=== PATIENT | female | born 1990 | race Caucasian/White ===

== ENCOUNTER 2019-07-08 10:26 | Emergency (ER) | payer SELFPAY ==
[2019-07-08 11:12] LABS: #Lymphocytes 1.4 thou/uL (1.20-3.40); #Monocytes 0.6 thou/uL (0.11-0.59); %Basophils 0.3 % (0.0-1.0); %Eosinophils 0.4 % (0.0-10.0); %Lymphocytes 17.5 % (21.0-51.0); %Monocytes 7.7 % (0.0-10.0); %Neutrophils 74.2 % (42.0-75.0); Hemoglobin 12.1 g/dL (12.0-16.0); Mean Corpuscular HGB CONC 32.5 g/dL (32.0-36.0); Mean Corpuscular Hemoglobin 31.6 pg (27.0-31.0); Mean Corpuscular Volume 97.1 fL (78.0-98.0); Mean Platelet Volume 9.2 fL (7.4-10.4); Platelet Count 159 thou/uL (130-400); RBC Distribution Width 10.8 % (11.5-14.5); Red Blood Cell (RBC) Count 3.84 mill/uL (4.20-5.40); White Blood Cell (WBC) Count 8.1 thou/uL (4.8-10.8)
[2019-07-08 11:50] LABS: ALT (SGPT) 9 U/L (8-55); AST (SGOT) 13 U/L (5-34); Albumin 3.9 g/dL (3.5-5.0); Alkaline Phosphatase 41 U/L (40-110); Anion Gap 14 mmol/L (10-20); BUN (Urea Nitrogen) 10 mg/dL (7.0-18.7); Bilirubin, Total 0.4 mg/dL (0.2-1.2); Calc. Creatinine Clearance 0 mL/min (70-130); Calcium 8.3 mg/dL (7.8-10.44); Carbon Dioxide 19 mmol/L (22-29); Chloride 108 mmol/L (98-107); Estimated GFR-MDRD Greater than 90; Globulin 2.6 g/dL (2.4-3.5); Glucose 76 mg/dL (70-105); Potassium 3.6 mmol/L (3.5-5.1); Protein, Total 6.5 g/dL (6.0-8.3); Sodium 137 mmol/L (136-145)
--- NOTE | 2019-07-08 11:51 | ULT ---
TRANSABDOMINAL TRANSVAGINAL PELVIC ULTRASOUND DATE:: 07/08/2019 10:42 AM CLINICAL HISTORY: Pelvic pain, syncope and 6 weeks history of . COMPARISON: None. TECHNIQUE: Grayscale, color Doppler and spectral Doppler images were obtained of the pelvis see a tra nsabdominal transvaginal approach Uterus: Size: 9.9 x 7.2 x 5.3 cm Mass: The uterine mass is evident. Cervix: Within normal limits Endometrium: There is a single live intrauterine gestation with yolk sac and pole identified. T he yolk sac measures 0.43 cm. The crown-rump length was 0.79 cm giving estimated gestational age of 6 weeks and 5 days. Estimated due date is February 26, 2020. Clinical age is 7 weeks and 1 day with est imated due date of February 23, 2020. Cardiac activity associated with the pole of the 125 bpm. Small amount of suspected endometrial fluid is seen within the lower uterine segment. Ovaries: Size: right measures 2.2 x 1.2 x 2.1 cm; left measures 3.1 x 1.6 x 3.4 cm Mass: None. Flow: Normal Cul-de-sac: No free fluid is seen within the pelvis. IMPRESSION: Single live intrauterine gestation with size and dates as above.
--- NOTE | 2019-07-08 12:13 | CT ---
CT Brain WO Con: 07/08/2019 11:46 AM CLINICAL HISTORY: Syncope. IMAGING TECHNIQUE: Multiple CT images were obtained of the brain without IV contrast. COMPARISON: None. FINDINGS: Brain: No acute infarct or hemorrhage is evident. No midline shift. Ventricles: Normal. No hydrocephalus.. Skull: Intact.. Visualized Paranasal sinuses: Clear.. Mastoid air cells:Clear. Extracranial soft tissues:Normal. IMPRESSION: No acute intracranial abnormality.
== END 2019-07-08 12:46 | disposition home or self-care (01) ==
LOC: ERS 10:26
DX: O99.89 Other specified diseases and conditions complicating pregnancy, childbirth and the puerperium (principal); R55 Syncope and collapse; Z3A.01 Less than 8 weeks gestation of pregnancy
CPT/HCPCS: 36415; 70450; 76856; 80053; 84702; 85025; 86900; 86901; 93005

== ENCOUNTER 2019-10-12 08:15 | Outpatient (CLI) | payer OTHER ==
--- NOTE | 2019-10-12 10:02 | ULT ---
OB ULTRASOUND: Date: 10/12/2019 INDICATION: anatomy. FINDINGS: There is a single, viable intrauterine . Gestational age by ultrasound is 20 weeks and 2 day s. Biometry: BPD: 19 weeks 6 days HC: 20 weeks 1 day AC: 20 weeks 5 days FL: 20 weeks 0 days EFW: 340 gm, 20 weeks 4 days Placenta: Posterior. Presentation: Transverse with head to maternal left. Amniotic Fluid: Within normal range. JESSICA recorded at 12 cm. Heart Rate: 150 beats/minute. Cervical Length: 4.9 cm. Anatomy: Intracranial contents, 4 chamber heart, stomach, kidneys, cord insertion, bladder, spine, lips, nose, all extremities, and 3 vessel cord were all imaged. No abnormality identified. IMPRESSION: 20 weeks and 2 days gestational age by ultrasound. No abnormality identified. POS: [facility]
== END 2019-10-12 08:16 | disposition home or self-care (01) ==
LOC: BICULT 08:15
PROVIDERS: ATTEND Family Medicine
DX: O09.92 Supervision of high risk pregnancy, unspecified, second trimester (principal); Z3A.20 20 weeks gestation of pregnancy
CPT/HCPCS: 76805

== ENCOUNTER 2024-07-01 21:54 | Inpatient (IN) | payer SELFPAY ==
[~2024-07-01 21:54] MED LIST: Iopamidol-370 76% 500 ML MDV (1 ML CHARGE) ONE
[2024-07-01 22:21] LABS: #Basophils Less than 0.03 10x3/uL (0.0-0.2); #Eosinophils Less than 0.03 10x3/uL (0.0-0.7); %Basophils 0.1 % (0.0-1.0); %Eosinophils 0.1 % (0.0-10.0); %Lymphocytes 6.9 % (21.0-51.0); %Monocytes 9.8 % (0.0-10.0); %Neutrophils 82.8 % (42.0-75.0); Hematocrit 38.1 % (36.0-47.0); Hemoglobin 13.2 g/dL (12.0-16.0); Mean Corpuscular HGB CONC 34.6 g/dL (32.0-36.0); Mean Corpuscular Hemoglobin 31.2 pg (27.0-31.0); Mean Corpuscular Volume 90.1 fL (78.0-98.0); Mean Platelet Volume 10.6 fL (7.4-10.4); Platelet Count 188 10x3/uL (130-400); RBC Distribution Width 11.8 % (11.5-14.5); Red Blood Cell (RBC) Count 4.23 mill/uL (4.20-5.40)
[2024-07-01 22:32] LABS: ALT (SGPT) 9 U/L (8-55); AST (SGOT) 13 U/L (5-34); Albumin 3.6 g/dL (3.5-5.0); Alkaline Phosphatase 58 U/L (40-110); Anion Gap 16 mmol/L (10-20); BUN (Urea Nitrogen) 12 mg/dL (7.0-18.7); Bilirubin, Total 0.3 mg/dL (0.2-1.2); Calc. Creatinine Clearance 0 mL/min (70-130); Calcium 8.8 mg/dL (7.8-10.44); Carbon Dioxide 22 mmol/L (22-29); Chloride 101 mmol/L (98-107); Estimated GFR 117; Glucose 106 mg/dL (70-105); Potassium 3.8 mmol/L (3.5-5.1); Protein, Total 7.6 g/dL (6.0-8.3); Sodium 135 mmol/L (136-145)
[2024-07-01] MEDS ORDERED: Acetaminophen 500 MG TAB ONE (23:20)
[2024-07-01] MEDS ORDERED: Sodium Chloride 0.9% 100 ML ONE (23:20)
[2024-07-01] MEDS ORDERED: cefTRIAXone (ROCEPHIN) 1 GM VIAL ONE (23:20)
[2024-07-01] MEDS ORDERED: Ondansetron PF 4 MG/2 ML Vial ONE (23:35)
[2024-07-01 23:38] LABS: BHCG - Serum Negative (NEGATIVE); Pregs Control Background? CLEAR/WHITE (CLR/WHITE); Pregs Control Bar Appear? YES (CONTROL BAR)
[2024-07-02] MEDS ORDERED: Acetaminophen 500 MG TAB ONE (00:26)
[2024-07-02] MEDS ORDERED: Ondansetron ODT 4 MG TAB PO PRN (01:15)
[2024-07-02] MEDS ORDERED: Acetaminophen 650 MG Suppository PR PRN (01:15)
[2024-07-02] MEDS ORDERED: Morphine 4 MG/ML VIAL ONE (01:36)
[2024-07-02 01:37] LABS: CAUTI Indications for Culture Dysuria,urgency,freq; Clarity Turbid (Clear); Glucose, Urine (Dipstick) Normal (Negative); Leukocyte 500 Leu/uL (Negative); Nitrite 1+ (Negative); Protein, Urine (Dipstick) 30 mg/dL (Neg-Trace); WBC/HPF Greater than 50 HPF (0-3)
[2024-07-02 01:41] LABS: Specific Gravity, Urine 1.049 (1.002-1.036)
[2024-07-02 01:42] LABS: pH, Urine 6.2 (5.0-9.0)
[2024-07-02 01:53] LABS: Bacteria/HPF 1+ HPF (None Seen); Blood, Urine Unable to Interpret (Negative); RBC/HPF 0-3 HPF (0-3)
[2024-07-02 01:54] LABS: Bilirubin Unable to Interpret (Negative); Urobilinogen UNABLE TO INTERPRET mg/dL (Less than 2)
[2024-07-02 01:55] LABS: Ketone, Urine Unable to Interpret mg/dL (Negative)
[2024-07-02 01:56] LABS: Urine Culture Reflex Yes Yes
[2024-07-02] MEDS: Sodium Chloride 0.9% 1,000 ML IV SCH (05:00)
[2024-07-02 05:33] LABS: #Basophils Less than 0.03 10x3/uL (0.0-0.2); #Eosinophils Less than 0.03 10x3/uL (0.0-0.7); %Basophils 0.1 % (0.0-1.0); %Eosinophils 0.2 % (0.0-10.0); %Lymphocytes 15.5 % (21.0-51.0); %Monocytes 13.3 % (0.0-10.0); %Neutrophils 70.5 % (42.0-75.0); Hematocrit 33.7 % (36.0-47.0); Hemoglobin 11.3 g/dL (12.0-16.0); Mean Corpuscular HGB CONC 33.5 g/dL (32.0-36.0); Mean Corpuscular Hemoglobin 31.2 pg (27.0-31.0); Mean Corpuscular Volume 93.1 fL (78.0-98.0); Mean Platelet Volume 11.1 fL (7.4-10.4); Platelet Count 169 10x3/uL (130-400); RBC Distribution Width 11.7 % (11.5-14.5); Red Blood Cell (RBC) Count 3.62 mill/uL (4.20-5.40)
[2024-07-02 05:50] LABS: ALT (SGPT) 7 U/L (8-55); AST (SGOT) 10 U/L (5-34); Albumin 2.9 g/dL (3.5-5.0); Alkaline Phosphatase 51 U/L (40-110); Anion Gap 12 mmol/L (10-20); BUN (Urea Nitrogen) 10 mg/dL (7.0-18.7); Bilirubin, Total 0.3 mg/dL (0.2-1.2); Calc. Creatinine Clearance 135 mL/min (70-130); Carbon Dioxide 24 mmol/L (22-29); Chloride 102 mmol/L (98-107); Estimated GFR 117; Globulin 3.6 g/dL (2.4-3.5); Glucose 98 mg/dL (70-105); Potassium 3.6 mmol/L (3.5-5.1); Protein, Total 6.5 g/dL (6.0-8.3); Sodium 134 mmol/L (136-145)
[2024-07-02] MEDS: Acetaminophen 325 MG TAB PO PRN (08:18)
[2024-07-02] MEDS: Morphine 4 MG/ML VIAL SLOW IVP PRN (09:20)
[2024-07-02] MEDS: Enoxaparin 40 MG (0.4 mL) SYRINGE SC SCH (09:20)
[2024-07-02] MEDS: cefTRIAXone\\ROCEPHIN 1 GM in Sodium Chloride 0.9% 100 ML IVPB SCH (10:05)
[2024-07-02] MEDS: Ondansetron PF 4 MG/2 ML Vial IVP PRN (14:34)
[2024-07-02] MEDS: Ketorolac Tromethamine 30 MG (1 mL) VIAL IVP SCH (22:20)
[2024-07-03] MEDS ORDERED: cefTRIAXone\\ROCEPHIN 1 GM in Sodium Chloride 0.9% 100 ML IVPB SCH (02:00)
[2024-07-03 04:54] LABS: #Basophils Less than 0.03 10x3/uL (0.0-0.2); %Basophils 0.2 % (0.0-1.0); %Eosinophils 1.3 % (0.0-10.0); %Lymphocytes 22.9 % (21.0-51.0); %Monocytes 13.8 % (0.0-10.0); %Neutrophils 61.6 % (42.0-75.0); Hematocrit 31.6 % (36.0-47.0); Hemoglobin 10.3 g/dL (12.0-16.0); Mean Corpuscular HGB CONC 32.6 g/dL (32.0-36.0); Mean Corpuscular Hemoglobin 30.7 pg (27.0-31.0); Mean Platelet Volume 10.6 fL (7.4-10.4); Platelet Count 161 10x3/uL (130-400); RBC Distribution Width 11.8 % (11.5-14.5); Red Blood Cell (RBC) Count 3.36 mill/uL (4.20-5.40)
[2024-07-03 05:06] LABS: Anion Gap 10 mmol/L (10-20); BUN (Urea Nitrogen) 6 mg/dL (7.0-18.7); Calc. Creatinine Clearance 166 mL/min (70-130); Calcium 7.8 mg/dL (7.8-10.44); Carbon Dioxide 23 mmol/L (22-29); Chloride 107 mmol/L (98-107); Estimated GFR 123; Glucose 89 mg/dL (70-105); Potassium 3.9 mmol/L (3.5-5.1); Sodium 136 mmol/L (136-145)
[2024-07-03] MEDS: Morphine 2 MG/ML VIAL SLOW IVP PRN (09:19)
[2024-07-03] MEDS: cefTRIAXone\\ROCEPHIN 2 GM in Sodium Chloride 0.9% 100 ML IVPB SCH (11:07)
[2024-07-03 13:09] VITALS: BMI 29.0
[2024-07-03 19:16] VITALS: BP 105/64; TEMP 98.7
== END 2024-07-03 14:00 | disposition home or self-care (01) | DRG 872 ==
LOC: ERS 21:54 → OBSVTOIN 07-02 01:14 → MSONC 07-02 01:14
PROVIDERS: ADMIT Family Medicine; ATTEND Internal Medicine
DX: A41.9 Sepsis, unspecified organism (principal); N12 Tubulo-interstitial nephritis, not specified as acute or chronic; N30.90 Cystitis, unspecified without hematuria; Z98.891 History of uterine scar from previous surgery
CPT/HCPCS: 36415; 74177; 80048; 80053; 81001; 83605; 84703; 85025; 87040; 87086; 93005; 96365; 96375; J0696; J1650; J1885; J2270; J2272; J2405; J7030; Q9967